=== PATIENT | male | born 1985 | race Caucasian/White ===

== ENCOUNTER 2018-01-22 11:02 | Emergency (ER) | payer OTHER ==
[~2018-01-22] VITALS: Ht 193 cm; Wt 56.7 kg
[~2018-01-22 11:02] MED LIST: ANTIBIOTIC O500 U/GM TP; CEPHALEXIN500 M1 PO; HYDROCODONE BIT1 T11 PO; KEFLEX500 M1 PO; Motrin,Rufen800 MG PO; NAPROSYN500 MG PO; NORCO 325 MG-51 TAB PO; NORCO 5-325 TA1 EACH PO; Orphenadrine C100 MG PO; ULTRAM50 MG PO
[2018-01-22] MEDS ORDERED: CYCLOBENZAPRINE10 MG PO (12:11)
[2018-01-22] MEDS ORDERED: MEDROL DOSEPAK4 MG PO (12:11)
== END 2018-01-22 12:18 | disposition home or self-care (01) ==
LOC: ED 11:02
DX: M54.5 Low back pain (principal); Z88.5 Allergy status to narcotic agent